=== PATIENT | male | born 1990 | race Native Hawaiian/Other Pacific Islander ===

== ENCOUNTER 2017-05-04 12:42 | Emergency (ER) | payer OTHER ==
[2017-05-04 12:59] VITALS: O2SAT 100
--- NOTE | 2017-05-04 13:31 | C.PDOC ---
History Of Present Illness 26 y/o male c/o gradual onset left testicular pain and swelling x 2 days with no hx of trauma. denies abdominal pain, nausea, vomiting, fever, penile discharge, dysuria. pt seen at an urgent care facility and advised to come to ED for sonogram of scrotum. Time Seen by Provider: 05/04/17 13:00 Chief Complaint (Nursing): Male Genitourinary History Per: Patient History/Exam Limitations: no limitations Onset/Duration Of Symptoms: Days (2) Current Symptoms Are (Timing): Still Present Severity: Moderate Quality Of Discomfort: "Pain" Associated Symptoms: denies: Fever, Chills, Nausea, Vomiting, Urinary Symptoms Past Medical History Reviewed: Historical Data, Nursing Documentation, Vital Signs Vital Signs: Last Vital Signs Temp 98.0 F 05/04/17 14:50 Pulse 104 H 05/04/17 14:50 Resp 18 05/04/17 14:50 BP 125/76 05/04/17 14:50 Pulse Ox 100 05/06/17 09:09 - Medical History PMH: No Chronic Diseases Family History: States: Unknown Family Hx - Social History Hx Alcohol Use: Yes Hx Substance Use: No Review Of Systems Constitutional: Negative for: Fever, Chills Genitourinary: Positive for: Scrotal Pain. Negative for: Dysuria, Frequency, Penile Discharge, Rash, Penile Pain Skin: Negative for: Rash Physical Exam - Physical Exam Appears: Non-toxic, No Acute Distress Skin: Warm, Dry Gastrointestinal/Abdominal: Bowel Sounds, Soft, No Tenderness Male Genital: Testicular Tenderness (left), Testicular Swelling (left), No Inguinal Tenderness, No Inguinal Swelling, Scrotal Swelling, No Circumcised Neurological/Psych: Oriented x3, Normal Speech, Normal Cognition ED Course And Treatment O2 Sat by Pulse Oximetry: 100 Medical Decision Making Medical Decision Making: pt denies being sexually active. Per CDC recommendations, will tx with one dose im rocephin and ofloxacin 300 mg po bid x 10 days with urology follow up Disposition Counseled Patient/Family Regarding: Studies Performed, Diagnosis, Need For Followup, Rx Given - Disposition Referrals: Dakota Auguste MD [Staff Provider] - Disposition: HOME/ ROUTINE Disposition Time: 15:19 Condition: GOOD Additional Instructions: Please take ofloxacin as prescribed. Follow up with Dr Auguste or urologist of your choice in the next few days without fail. Return to ER for any worse swelling, worse pain. fever or any other concerning symptoms. Prescriptions: Ofloxacin 300 mg PO BID #20 tablet Instructions: Epididymo-orchitis (ED) Forms: [facility] ([place]), General Discharge Instructions - Clinical Impression Clinical Impression: Orchitis and epididymitis
--- NOTE | 2017-05-04 14:22 | US ---
HISTORY: left teste swollen and tender x 2 days TECHNIQUE: Realtime sonography through the scrotum with color and doppler flow. COMPARISON: None Available. FINDINGS: RIGHT TESTICLE: Measures 4.4 x 2.1 x 2.3 cm. Normal echotexture and flow. RIGHT EPIDIDYMIS: Epididymal head measures 1.1 x 1.2 x 1 cm. Grossly unremarkable appearance with normal flow. LEFT TESTICLE: Measures 4.4 x 2.4 x 3.1 cm. This slight heterogeneous echotexture of the left testicle associated with diffuse increase blood flow. LEFT EPIDIDYMIS: Epididymal head measures 1 x 2 x 1.8 cm. Heterogeneous mild enlargement of the left epididymis head associated with increased blood flow. HYDROCELE: Small left-sided hydrocele noted. VARICOCELE: Prominent/mild left-sided varicocele. OTHER FINDINGS: Thickening of the scrotal wall/skin more on the left. IMPRESSION: Increased blood flow at the left testicle and left epididymis suspicious for orchitis and epididymitis. Trace/small left hydrocele and mild left varicocele.
[2017-05-04] MEDS ORDERED: cefTRIAXone (Rocephin) 250 mg Inj IM STA (14:43)
[2017-05-04 14:51] VITALS: BP 125/76; PULSE 104; RESP 18; TEMP 98
[2017-05-04] MEDS ORDERED: cefTRIAXone 250 MG in Lidocaine Hydrochloride 1% 0.9 ML IM ONE (15:00)
[2017-05-04 15:25] LABS: SQUAMOUS EPITHIAL < 1 /hpf (0-5); URINE BILIRUBIN NEGATIVE (NEGATIVE); URINE BLOOD NEGATIVE (NEGATIVE); URINE CLARITY Clear (Clear); URINE COLOR Straw (YELLOW); URINE GLUCOSE (UA) NORMAL (Normal); URINE LEUKOCYTE ESTERASE NEG Leu/uL (Negative); URINE NITRATE NEGATIVE (NEGATIVE); URINE PROTEIN NEGATIVE (NEGATIVE); URINE UROBILINOGEN NORMAL mg/dL (0.2-1.0)
== END 2017-05-04 15:54 | disposition home or self-care (01) ==
LOC: C.ER 12:42
DX: N45.3 Epididymo-orchitis (principal)
CPT/HCPCS: 76870; 81001; 87086; 87491; 87591; 96372; 99284; J0696